=== PATIENT | female | born 1985 | race Caucasian/White ===

== ENCOUNTER 2018-10-05 16:14 | Emergency (ER) | payer BC ==
[~2018-10-05] VITALS: Ht 167.6 cm; Wt 67.4 kg
[2018-10-05 19:09] VITALS: BP 126/77
--- NOTE | 2018-10-06 10:03 | REP ---
PELVIS AND RIGHT HIP: AP view of the pelvis and AP and frogleg views of the right hip are performed and demonstrate no fracture, dislocation or intrinsic bone disease. No significant arthritic changes are seen at the hip joints. IMPRESSION: Negative exam. Electronically Signed by Jeffery Mckenna MD 10/07/2018 01:25 P
== END 2018-10-05 19:32 | disposition home or self-care (01) ==
LOC: M ED 16:14
DX: S30.1XXA Contusion of abdominal wall, initial encounter (principal); W22.09XA Striking against other stationary object, initial encounter; Y92.838 Other recreation area as the place of occurrence of the external cause; Y93.11 Activity, swimming